=== PATIENT | female | born 1955 | race American Indian/Alaskan Native ===

== ENCOUNTER → 2021-04-22 | Outpatient (CLI) | payer OTHER ==
[~2021-04-22] MED LIST: CHLOROPHYLL 201 EACH PO; LEVOXYL75 MCG PO; PROAIR HFA8.5 GM INH; VITAMIN C500 M2 PO; VITAMIN D325 MC3 PO
[2021-04-22 11:23] LABS: HEMATOCRIT 43.3 % (37.0-47.0); HEMOGLOBIN 13.9 gm/dL (12.0-15.0); MCH 29.1 pg (26.0-34.0); MCV 90.8 fL (80.0-100.0); RBC 4.77 mil/uL (4.20-5.00); URINE BILIRUBIN NEGATIVE (Negative); URINE BLOOD NEGATIVE (Negative); URINE CLARITY CLEAR; URINE COLOR YELLOW; URINE GLUCOSE-RANDOM* NEGATIVE (Negative); URINE KETONES NEGATIVE (Negative); URINE LEUKOCYTES-REFLEX NEGATIVE (Negative); URINE NITRITE-REFLEX NEGATIVE (Negative); URINE PROTEIN (DIPSTICK) NEGATIVE (Negative); URINE UROBILINOGEN 0.2 E.U./dl (0.2-1.0); WBC 5.7 thou/uL (4.0-11.0)
[2021-04-22 11:30] LABS: CREATININE 0.9 mg/dL (0.6-1.0); POTASSIUM 4.7 mmol/L (3.5-5.1)
[2021-04-22 12:11] LABS: INR 0.94; PROTIME 10.3 Seconds (10.5-12.1)
== END ==
LOC: PAC 10:44
PROVIDERS: ATTEND Orthopaedic Surgery Sports Medicine
DX: S61.211A Laceration without foreign body of left index finger without damage to nail, initial encounter (principal); X58.XXXA Exposure to other specified factors, initial encounter; Y92.89 Other specified places as the place of occurrence of the external cause; Y93.89 Activity, other specified; Y99.8 Other external cause status

== ENCOUNTER → 2021-04-26 | Outpatient (CLI) | payer OTHER | LOC: LAB 09:30 | PROVIDERS: ATTEND Student in an Organized Health Care Education/Training Program | DX: Z01.812 Encounter for preprocedural laboratory examination (principal); Z20.822 Contact with and (suspected) exposure to COVID-19 ==

== ENCOUNTER 2021-04-27 06:21 | Observation (INO) | payer OTHER ==
[~2021-04-27] VITALS: Ht 165.1 cm; Wt 89.4 kg
--- NOTE | ~2021-04-27 | O ---
[facility] [place] [address] OPERATIVE REPORT Name: IQRA VELEZ Room #: 150-2 [facility] M.Christiano.#: [id number] Admission: 04/27/21 Attend Phys: Eyad Henriquez Discharge: Date of : 53 Report #: [id number] THIS REPORT FOR: cc: Jorje Byrne MD, Mark S. MD VanDenBerghe, Gregory R. MD ~ DATE OF SERVICE: 04/27/2021 PREOPERATIVE DIAGNOSES: Right shoulder recurrent rotator cuff tear, glenohumeral joint osteoarthritis, biceps tendinopathy and partial thickness tearing. POSTOPERATIVE DIAGNOSES: Right shoulder recurrent rotator cuff tear, glenohumeral joint osteoarthritis, biceps tendinopathy and partial thickness tearing with intra-articular loose body. PROCEDURE PERFORMED: Right reverse total shoulder arthroplasty with open biceps tenodesis. SURGEON: Eyad Roth M.D. LEAK OPERATOR [employer]: [employer] PA-C. ANESTHESIA: General. FLUIDS: 750 mL crystalloid. ESTIMATED BLOOD LOSS: Approximately 75 mL IMPLANTS UTILIZED: DePuy Delta Xtend reverse total shoulder with a standard Metaglene, 38+2 lateralized eccentric glenosphere and a size 12 Global Unite stem size 1 epiphysis with a +6 humeral polyethylene cup. DESCRIPTION OF PROCEDURE: After proper identification of the patient and the operative site in preoperative holding area, the operative site signed by myself. Prophylactic antibiotics given. The patient elected to receive an ultrasound-guided block after reviewing the risks, benefits, alternatives and complications with anesthesia. After a satisfactory block, the patient was brought back to the operative suite after induction of satisfactory general anesthesia per LMA. The patient was carefully positioned in the beach chair position with head of bed elevated approximately 40 degrees. The right shoulder was sterilely prepped and draped in the usual manner and placed within a HowDo limb positioning system. After sterile prep and drape of the limb, final draping was with Ioban. An anterior deltopectoral approach was planned. Skin was incised sharply. Full-thickness skin flaps were developed. Cephalic vein was identified and retracted laterally and subdeltoid adhesions were carefully [address] [address] OPERATIVE REPORT Name: IQRA VELEZ Room #: 150-2 [facility] M.R.#: [id number] Admission: 04/27/21 Attend Phys: Eyad Henriquez Discharge: Date of : 53 Report #: [id number] released bluntly. A brown deltoid retractor was utilized to retract the deltoid. At this point, there was extensive tenosynovitis and scarring about the biceps tendon, which also had high-grade partial thickness tearing. This was tenodesed to the undersurface of the pectoralis major tendon with #2 FiberWire. Anterior circumflex vessels were identified, ligated and cauterized. Biceps was followed proximally and recurrent rotator cuff tear of the supraspinatus extending back to the infraspinatus was noted. Retained sutures were present within the rotator cuff, which were removed. The subscapularis was otherwise intact and was released in a subscap peel-type manner. This was carried out with dissection along and through the rotator interval along the upper border of the subscapularis. A #2 FiberWire was placed through the more distal portion of the subscapularis tendon. The axillary nerve was identified and protected throughout the entire procedure and the inferior capsule was released off the humerus. The humeral head was delivered. An oscillating saw was used to flatten the superior surface of the humerus and then it was reamed by hand up to a size 12 stem, which matched the preoperative templating. The cutting jig was assembled, positioned, and fixed with the half pins. After the overall position and alignment was triple checked, humeral head osteotomy was performed. A portion of the posterior cuff was intact of the infraspinatus and teres minor and inferior osteophytes were removed with a rongeur. A protection plate was applied. The subscapularis was dissected free of the capsule in a blunt manner with a right angle clamp. The anterior capsule was then carefully excised. Great care was taken to identify and protect the axillary nerve. Very thickened capsule was noted. Next, an anterior lighted Bankart retractor was positioned and the joint was distracted with a lamina gizzard peeler. The remaining anterior capsule, biceps tendon, and labrum were excised and then inferiorly, the labrum and capsule were carefully released off the glenoid margin going back to the fibers of the long head of the triceps. There was excellent glenoid exposure; and with the glenoid exposed, some inferior osteophytes were present and noted. A guide pin was inserted into the glenoid. Its position was verified by palpation. The glenoid face was reamed followed by the Jewel reamer; and after a satisfactory reaming of the glenoid face, the step drill was utilized. The central peg was contained. Guidepin was removed. There were advanced degenerative changes noted on both sides of the joint. A standard Metaglene was carefully impacted. It had excellent rotational stability. There was good glenoid bone stock and superior and inferior locking screws were inserted followed by anterior and posterior screws. These were sequentially tightened, locking screws were locked and all screws had excellent purchase. Next, based on the templating and intraoperative findings, a 38+2 eccentric glenosphere provided good overall fit and stability. The proximal humerus was then reamed with an acetabular reamer. The glenosphere implant was positioned in this and then delivered into the Metaglene. A guidewire was inserted. After the glenosphere was fully seated, its locking screw was rotated counterclockwise until an audible click was noted. It was then seated further. This was tightened by hand and then impacted and tightened three additional times and the [facility] [address] [address] OPERATIVE REPORT Name: IQRA VELEZ Room #: 150-2 [facility] M.Christiano.#: [id number] Admission: 04/27/21 Attend Phys: Eyad Henriquez Discharge: Date of : 53 Report #: [id number] screw in glenosphere construct advanced as typically noted. This was well fixed. The eccentricity was placed inferior and the limb was again thoroughly irrigated with normal saline. This had been done multiple times throughout the procedure. Next, the humeral trial stem was assembled, placed within the humerus and trial polyethylene cups were utilized, +6 cup provided the best overall soft tissue tension and stability. Trial implants were removed. Three drill holes were placed within the anterior cortex of the humerus. This was again irrigated with antibiotic irrigant and #2 FiberWires were passed through these drill holes. The stem was assembled on the back table. The inferior 2 sutures were wrapped around the stem. It was carefully advanced and impacted into position. It had excellent rotational stability and a +6 polyethylene humeral cup provided the best overall fit and stability and this was impacted into position and it was stable. The joint was reduced. It was stable throughout a full range of motion. Next, the subscapularis was repaired with three #2 FiberWires in a modified Manoj-Blaine technique. She could be externally rotated 40 degrees without any tension on the repair construct and then 1 gram of vancomycin powder was utilized, half at deep, half at more superficial after the joint was again irrigated. Deltopectoral interval was closed with 0 Vicryl, 2-0 Vicryl in the subcutaneous tissues, and final skin closure was with running 4-0 Monocryl. This was sealed with Dermabond. Aquacel dressing was applied. The patient will be immobilized in a sling and abduction pillow for 4 weeks postoperatively. Qualified oceanographer assistant utilized throughout the entire procedure to aid in patient limb positioning, visualization and retraction of soft tissues, instrument passage, closure and sling and dressing application. By: [id number] Eyad Roth MD /nayeli
[2021-04-27 07:36] VITALS: BP 132/62
--- NOTE | 2021-04-27 19:57 | NUR ---
ASSUMED CARE OF PT AT 1445 THIS AFTERNOON. PT HAS SHOULDER REPAIR SURGERY AND HAS POLAR PK WITH GRISELDA DRESSING AND WRAP ON RT SHOULDER. ASSESSMENTS PERFORMED BY ANTHONY NURSE ELECTROSTATIC PAINTER. HISTORY AND SEPSIS ASSESSMENTS COMPLETED. NO OTHER NEEDS AT THIS TIME. WILL MONITOR AND NOTE ANY CHANGES.
[2021-04-27 20:30] VITALS: BP 93/52
[2021-04-28 00:10] VITALS: BP 105/58
--- NOTE | 2021-04-28 03:28 | NUR ---
RECEIVED CARE OF THIS PATIEMT AT 1900. PATIENT ALERT AND ORIENTED X4. HAS IMMOBILIZER ON RUE. FINGERS ARE WARM AND MOBILE. CAN FEEL PRESSURE. PULSE ON RUE 2+. HAS TEDS AND SCD'S ON. HAS POLAR PAC ALSO. C/O PAIN. MED GIVEN. SLEPT OFF AND ON DURING NIGHT.
[2021-04-28 03:30] VITALS: BP 92/56
[2021-04-28 05:13] LABS: HEMATOCRIT 34.6 % (37.0-47.0); HEMOGLOBIN 11.8 gm/dL (12.0-15.0)
[2021-04-28 05:16] LABS: POTASSIUM 4.7 mmol/L (3.5-5.1)
[2021-04-28 08:41] VITALS: BP 93/52
--- NOTE | 2021-04-28 08:57 | NUR ---
ASSESSMENT: CM REVIEWED CHART AND SPOKE WITH PT AT THE BEDSIDE. PT IS ALERT AND ORIENTED X4. PT REPORTS THAT SHE LIVES IN A HOUSE WITH HER FAMILY. PT REPORTS A FEW STEPS TO ENTER THE HOME THROUGH THE GARAGE AND A FULL FLIGHT OF STEPS TO HER BEDROOM. PT REPORTS BEING FULLY INDEPENDENT WITH ADLS AND AMBULATION. PT DENIES HAVING ANY DME OR THE NEED FOR IT. PT REPORTS SHE HAS NEVER HAD ANY HOME HEALTH IN THE PAST. CM DISCUSSED ROLE. PT DOES NOT ANTICIPATE HAVING ANY NEEDS FROM CM AT THIS TIME. CM WILL CONTINUE TO FOLLOW TO ASSIST NEEDED.
[2021-04-28 09:10] LABS: CREATININE 0.8 mg/dL (0.6-1.0); MAGNESIUM 1.9 mg/dL (1.8-2.4)
[2021-04-28 15:55] VITALS: BP 103/54
--- NOTE | 2021-04-28 16:05 | NUR ---
PT ASSESSED AT START OF SHIFT. UP AMBULATING SOME W/ THERAPY AND SAT IN THE CHAIR FOR SHORT TIME AND WANTED TO RETURN TO BED. STATED SOME MILD DIZZINESS WHEN WALKING. PAIN CONTROLLED W/ PAIN MED. EATING AND DRINKING WELL. PALAK BARGER SAW PT THIS AFTERNOON AND PLAN FOR PT TO STAY OVERNOC IF NOT FEELING BETTER ENOUGH TO LEAVE TODAY. BP SOME BETTER BUT STILL ON THE LOW SIDE. PLAN FOR DC IN AM.
[2021-04-28 19:21] VITALS: BP 101/53
--- NOTE | 2021-04-29 00:32 | NUR ---
PT WAAS SITTING UP ON HER BED WATCHING TV AT SHIFT CHANGE.PAIN MED GIVEN PER PT'S REQUEST.DRSG TO HER R ARM C/D/I WITH SLING AND POLAR PACK IN PLACE.PT UP WITH SBA TO THE TOILET.PT FEELING MUCH BETTER AND LOOKING FORWARD TO BE DC'D HOME.CALL LIGHT WITHIN REACH.
[2021-04-29 08:28] VITALS: BP 137/73
--- NOTE | 2021-04-29 12:34 | NUR ---
ASSUMED PT CARE AROUND 0715. PT ALERT X ORIENTEDX 4. ON ROOM AIR. STAND BY ASST. IV LEFT HAND/LR/75MLS/HR. AQUACELL DRESSING AND IMMOBILIOZER ON RT SHOULDER. WORKED WITH OCC THERAPY. PENDING DC ORDER IF PATIENT FEELS STRONG E[place]GH TO GO. RN TALKED TO PATIENT, PATIENT WAITING FOR BEHAVIORAL INTERVENTION SPECIALIST TO WORK WITH, PATIENT SAID, HER GOAL FOR TODAY IS TO CLIMB FEW STEPS AND DC, WAITING FOR PT TO WORK WITH.FALL PRECT IN PLACE, PAIN PARTIALLY CONTROLLED BY PAIN MEDS, CALL LIGHT IN REACH, WILL CALL APPROPRIATELY. WILL CONT TO MONITOR.
--- NOTE | 2021-04-29 15:51 | NUR ---
on-going assessment: CM REVIEWED CHART AND SPOKE WITH PATIENT. PT IS HOPEFUL SHE WILL GET TO GO HOME TODAY. PT REPORTS DOING WELL WITH THERAPY. PT DOES NOT ANTICIPATE ANY NEEDS FROM CM.
[2021-04-29 16:30] VITALS: BP 118/63
[2021-04-29 19:28] VITALS: BP 118/63
== END 2021-04-29 20:25 | disposition home or self-care (01) ==
LOC: OR → TBA 06:22 → OR 09:30 → 4S 14:44 → OR 15:37 → 4S 16:03
PROVIDERS: Physician Assistant Surgical; ADMIT Orthopaedic Surgery Sports Medicine; ATTEND Orthopaedic Surgery Sports Medicine
DX: M19.011 Primary osteoarthritis, right shoulder (principal); M75.101 Unspecified rotator cuff tear or rupture of right shoulder, not specified as traumatic; Z88.5 Allergy status to narcotic agent; Z79.899 Other long term (current) drug therapy
CPT/HCPCS: 50010; 50101; 50172; 50386; 50403; 50697; 50733; 50935; 51320; 52001; 52138; 52258; 53000; 53078; 54118; 56524; 56525; 56526; 56530; 57095; 57103; 57423; 57468; 57469; 57470; 57471; 57472; 57475; 57932; 58152; 58153; 58154; 58585; 62110; 62900; 64043; 65060; 70005